=== PATIENT | female | born 1950 | race Caucasian/White ===

== ENCOUNTER 2017-12-18 16:55 | Inpatient (IN) | payer MEDICARE, OTHER ==
[~2017-12-18] VITALS: Ht 157.5 cm; Wt 65.8 kg
--- NOTE | ~2017-12-18 | PSY ---
PATIENT NAME:HANY AMBROSE MEDICAL RECORD: [id number] : 50 LOCATION:[facility] ADMISSION DATE: 12/18/17 ACCOUNT: [id number] PSYCHIATRIC EVALUATION DATE OF EVALUATION: 12/19/17 IDENTIFYING DATA: This is the first Shelter admission for this 67-year-old white female. HISTORY OF PRESENT ILLNESS: This patient was admitted to the hospital last night after she made suicidal statements to her family. The patient has been under extraordinary stress. Her granddaughter and 2-month-old great grandson moved in with her about a month ago. The granddaughter has an arrest warrant outstanding at the present time. The granddaughter also evidently has been stealing some of the patient's pain medications. The patient herself has had a worsening of her chronic pain. She is very frustrated by her inability to do ordinary activities of daily living. 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 She even has difficulty walking to the mailbox. The patient herself has had multiple back surgeries. She also has numerous other ongoing medical problems including organic heart disease. She also has hypertension and arthritis. She has been seeing a counselor through Dr. Morales's office and in [place]. She has been treated recently with Paxil 40 mg daily, but continues to have episodes of anxiety and panic. Depressive symptoms have consistently worsened. No history of substance abuse. No history of psychosis. PAST MEDICAL HISTORY: See above. ALLERGIES: Include VITAMIN D3, FOSAMAX, and GABAPENTIN. ROUTINE MEDICATION: Include baclofen, Betapace, Catapres, Mobic, and p.r.n. pain medication. FAMILY HISTORY: Positive for substance abuse in the patient's granddaughter. SOCIAL HISTORY: The patient was about 3 years ago. She was living alone until the granddaughter moved in. MENTAL STATUS: On interview, the patient is very pleasant. She objects strongly to being in the environment with the other patients, however. Mood is at times euthymic, other times dysphoric and tearful. Affect is slightly brittle. Speech is fluent. Content of thought focuses on somatic concerns. The patient now strongly denies suicidal ideation or intent. Sensorium testing is fairly clear. The patient is oriented to time, place, person, and situation. Remote, intermediate, and short-term recall are good. The patient does complain of poor concentration. DIAGNOSTIC IMPRESSION: AXIS I: Major depressive disorder with anxiety features -- recurrent. AXIS II: No diagnosis. AXIS III: Status post multiple back surgeries, degenerative joint disease, hypertension, and organic heart disease. AXIS IV: Moderate. AXIS V: 40. PLAN: 1. The patient will be admitted for further evaluation from a medical and psychiatric standpoint. 2. We will likely change antidepressants, also may add hypnotic as needed. 3. Supportive therapy. TRANSINT:[id number] Voice Confirmation ID: [id number] DOCUMENT ID: [id number] STEFFANY CONTE III, MD at 1026 CC: [id number] DICTATION DATE: 12/19/17 1215 MANUFACTURING PLANT CONTROLLER: 12/19/17 1236 ADM IN [facility] [address] [place] [address]
--- NOTE | ~2017-12-18 | PN ---
PATIENT:HANY AMBROSE MEDICAL RECORD: [id number] LOCATION:[facility] ADMISSION DATE: 12/18/17 PROGRESS NOTE DATE OF SERVICE: 12/20/2017 SUBJECTIVE: The patient states that she is feeling better and in particular, she slept well last night. OBJECTIVE: The patient had exhibited hypokalemia and additional potassium was given to correct this. Potassium blood level from last night was 3.3. Potassium level from this morning is pending. The patient states that she is no longer having any suicidal ideation, in hopes to be able to go home fairly soon. On exam, mood is euthymic and pleasant. Affect is bland. Speech is fluent. Content of thought as noted above. Sensorium shows no change. ASSESSMENT: No change in diagnoses. PLAN: 1. Depending on lab results, the patient may possibly be discharged as early as this afternoon. 2. We will continue all current medications and supportive therapy. TRANSINT:[id number] Voice Confirmation ID: [id number] DOCUMENT ID: [id number] STEFFANY CONTE III, MD at 0833 CC: [id number] DICTATION DATE: 12/20/17 1102 PRODUCT DEVELOPMENT ACTUARY: 12/20/17 1158 DIS IN 12/20/17 [id number] [place] [address]
--- NOTE | ~2017-12-18 | DS ---
PATIENT:HANY AMBROSE :50 MEDICAL RECORD: [id number] DISCHARGE SUMMARY ADMISSION DATE: 12/18/17 DISCHARGE DATE: 12/20/17 DATE OF ADMISSION: 12/18/2017 DATE OF DISCHARGE: 12/20/2017 HISTORY: A 67-year-old white female with past history of depression. The patient had made suicidal statements to her family and more concerned about her situation and brought her for hospitalization. The patient had multiple medical problems including chronic back pain. For further details, please see previously dictated history. COURSE IN THE HOSPITAL: The patient was seen in consultation by Dr. Charles. Dr. Charles noted the presence of chronic back pain, degenerative joint disease, hypokalemia on admission, coronary artery disease, hypertension, and cardiac arrhythmias. From a medication standpoint, changes were made. The patient was taken off Paxil and placed on Remeron 15 mg at bedtime as well as Lexapro 20 mg daily for control of her depressive symptoms. She was maintained on her other routine medications by Dr. Charles. She did not show any medical complications with the exception of the fact that she had critically low potassium on admission. This was corrected by the time of discharge and the patient was given an additional prescription of K-Dur at the time of discharge. By the time of discharge, the patient was stable and was instructed to follow up with her primary care physician as well as the counselor that she had been seeing in [place]. FINAL DIAGNOSES: AXIS I: Major depressive disorder - recurrent - improving. AXIS II: No diagnosis. AXIS III: Hypokalemia - corrected, degenerative joint disease, hypertension, atrial fibrillation, coronary artery disease, multiple back surgeries. AXIS IV: Moderate. AXIS V: 55. PLAN: 1. The patient is discharged on current medications. 2. Diet and activities as tolerated. 3. Follow up with primary care physician, Dr. Morales. 4. Follow up with counselor through Dr. Morales's office. TRANSINT:[id number] Voice Confirmation ID: [id number] DOCUMENT ID: [id number] STEFFANY CONTE III, MD at 0508 CC: [id number] DICTATION DATE: 12/21/17 1140 SAP PI ARCHITECT: 12/21/17 1203 DIS IN 12/20/17 [facility] [address] [place] [address]
[~2017-12-18 16:55] MED LIST: AUGMENTIN 875-11 TAB PO; BACLOFEN10 MG PO; BETAPACE 80 MG80 MG PO; CATAPRES0.1 MG PO; COZAAR100 MG PO; CYMBALTA60 MG PO; DESYREL50 MG PO; DURAGESIC1 PATCH .7 TD; GINKGO PO; HYDROCHLOROTH12.5 M1 PO; K-DUR20 MEQ PO; MAGNESIUM GLUC500 M1 PO; MOBIC7.5 MG PO; NORCO 10/325 TA1 TA1 PO; OMEGA XL PO; OMEPRAZOLE20 M1 PO; PAXIL40 MG PO; ZESTORETIC 20/21 TAB PO
[2017-12-18] MEDS ORDERED: CALCIUM CA500 MG/51 PO (20:34)
[2017-12-18] MEDS ORDERED: KLONOPIN1 MG PO (20:34)
[2017-12-18] MEDS ORDERED: MIACALCIN NASA3.7 ML NASAL (20:36)
[2017-12-18] MEDS ORDERED: VITAMIN D31000 UNIT PO (20:37)
[2017-12-18 21:32] VITALS: BP 90/55
[2017-12-19 06:33] LABS: BASOPHILS 0.1 % (0-2); EOSINOPHILS 2.2 % (0-7); HEMATOCRIT 33.1 % (36.0-48.0); IMMATURE GRANULOCYTES 0.1 % (0-5); LYMPHOCYTES 29.6 % (15-50); MCHC 33.2 g/dL (31.0-37.0); MCV 84.2 fL (80.0-100.0); MEAN PLATELET VOLUME 9.8 fL (7.4-10.4); RBC 3.93 10x6/uL (4.00-5.40); RDW 13.1 % (11.5-14.5); WBC 6.9 10x3/uL (4.8-10.8)
[2017-12-19 06:34] LABS: PLATELET COUNT 150 10x3/uL (130-400)
[2017-12-19 06:59] LABS: ALBUMIN 3.1 g/dL (3.4-5.0); ANION GAP 11.8 mmol/L (8-16); BILIRUBIN - TOTAL 0.36 mg/dL (0.2-1.3); CARBON DIOXIDE 29.7 mmol/L (21.0-32.0); CHOL - HDL RATIO 2.9 ratio (2.3-4.1); CREATININE - SERUM 1.8 mg/dL (0.6-1.3); LDL-HDL RATIO 1.6 ratio (1.5-3.5); PROTEIN - SERUM 6.1 g/dL (6.4-8.2); THYROID STIMULATING HORMONE 1.2 uIU/mL (0.36-3.74)
[2017-12-19 07:17] LABS: POTASSIUM - SERUM 2.5 mmol/L (3.5-5.1)
[2017-12-19 09:45] VITALS: BP 94/64
[2017-12-19 10:12] VITALS: BP 90/55
[2017-12-19 11:04] VITALS: Ht 157.5 cm; Wt 65.8 kg
[2017-12-19 19:41] VITALS: BP 109/60
[2017-12-20 06:14] LABS: RAPID PLASMA REAGIN Non Reactive (Non Reactive)
[2017-12-20 07:32] LABS: VITAMIN D 25 HYDROXY 44.2 ng/mL (30.0-100.0)
[2017-12-20 08:54] VITALS: BP 133/82
[2017-12-20 09:17] LABS: FOLATE (FOLIC ACID) - SERUM 13.5 ng/mL (>3.0)
[2017-12-20] MEDS ORDERED: AUGMENTIN 875-11 TAB PO (11:03)
[2017-12-20] MEDS ORDERED: LEXAPRO20 MG PO (11:04)
[2017-12-20] MEDS ORDERED: MOBIC7.5 MG PO (11:05)
[2017-12-20] MEDS ORDERED: REMERON15 MG PO (11:05)
[2017-12-20] MEDS ORDERED: K-DUR20 MEQ PO (11:08)
== END 2017-12-20 11:55 | disposition home or self-care (01) | DRG 885 ==
LOC: D.PSYCH 16:55
PROVIDERS: Psychiatry & Neurology Psychiatry
DX: F33.9 Major depressive disorder, recurrent, unspecified (principal); R45.851 Suicidal ideations; F41.9 Anxiety disorder, unspecified; M19.90 Unspecified osteoarthritis, unspecified site; I10 Essential (primary) hypertension; E87.6 Hypokalemia; I25.10 Atherosclerotic heart disease of native coronary artery without angina pectoris; I48.91 Unspecified atrial fibrillation; Z87.891 Personal history of nicotine dependence; D64.9 Anemia, unspecified; K21.9 Gastro-esophageal reflux disease without esophagitis

== ENCOUNTER → 2019-10-18 09:25 | Outpatient (CLI) | payer MEDICARE, OTHER ==
[~2019-10-18 09:25] MED LIST changes: +CALCIUM CA500 MG/51 PO; +KLONOPIN1 MG PO; +LEXAPRO20 MG PO; +MIACALCIN NASA3.7 ML NASAL; +REMERON15 MG PO; +VITAMIN D31000 UNIT PO
== END | disposition home or self-care (01) ==
LOC: D.HCCECHO 09:25
PROVIDERS: ATTEND Internal Medicine Interventional Cardiology
DX: I25.10 Atherosclerotic heart disease of native coronary artery without angina pectoris (principal)